=== PATIENT | female | born 1950 | race Caucasian/White ===

== ENCOUNTER 2016-08-17 22:56 | Emergency (ER) | payer BC, OTHER ==
[~2016-08-17] VITALS: Ht 162.6 cm; Wt 50.0 kg
[~2016-08-17 22:56] MED LIST: CALC1250 PO; CENTTAB9 PO; LEVO75TA3 PO; SULF1TAB47 PO; ZOCO40TA PO
[2016-08-17 23:18] VITALS: BP 160/79; PULSE 92; RESP 16; TEMP 98.4; O2SAT 98
[2016-08-17] MEDS ORDERED: SODIUM CHLORIDE 0.9% FLUSH 5 ML FLUSH IVF PRN (23:30)
[2016-08-17 23:33] LABS: MEAN CORPUSCULAR HGB CONC 36.1 % (32.0-36.0)
[2016-08-18] MEDS ORDERED: ACETAMINOPHEN 325 MG TAB PO ONE
[2016-08-18 00:05] VITALS: RESP 18; O2SAT 96
--- NOTE | 2016-08-18 00:13 | RADRPT ---
EXAM DATE/TIME: 08/17/2016 23:35 [facility] COMPARISON: No previous studies available for comparison. INDICATIONS : Chest pain. MEDICAL HISTORY : None. SURGICAL HISTORY : None. ENCOUNTER: Initial ACUITY: 1 day PAIN SCORE: 4/10 LOCATION: Bilateral chest FINDINGS: A single view of the chest demonstrates the lungs to be symmetrically aerated without evidence of mas s, infiltrate or effusion. The cardiomediastinal contours are unremarkable. Osseous structures are intact. CONCLUSION: No acute disease. Kam Reddy MD on August 18, 2016 at 0:07 Board Certified Radiologist. This report was verified electronically.
[2016-08-18 00:20] LABS: BASOPHIL % 0.4 % (0.0-2.0); EOSINOPHIL # 0.2 TH/MM3 (0-0.4); EOSINOPHIL % 2.3 % (0.0-4.0); HEMATOCRIT 35.2 % (35.0-46.0); LYMPH % 41.7 % (9.0-44.0); LYMPHOCYTE # 4.1 TH/MM3 (1.0-4.8); MEAN CELL VOLUME 94.1 FL (80.0-100.0); MEAN CORPUSCULAR HEMOGLOBIN 33.9 PG (27.0-34.0); MONO % 5.4 % (0.0-8.0); NEUT % 50.2 % (16.0-70.0); PLATELET COUNT 298 TH/MM3 (150-450); RED BLOOD COUNT 3.74 MIL/MM3 (4.00-5.30); RED CELL DISTRIBUTION WIDTH 12.8 % (11.6-17.2); WHITE BLOOD COUNT 9.9 TH/MM3 (4.0-11.0)
[2016-08-18 00:23] LABS: HEMO FLAGS AUTO DIFF
[2016-08-18 00:29] LABS: BLOOD, URINE SMALL (NEG); COMMENT (UR) CULT NOT INDICATED; CULTURE IF INDICATED CULT NOT INDICATED; GLUCOSE,URINE NEG (NEG); KETONE, URINE NEG (NEG); MUCUS URINE FEW /lpf (OCC); NITRITE,URINE NEG (NEG); URINE COLOR LIGHT-YELLOW (YELLW/STRAW)
[2016-08-18 00:41] LABS: APTT (PATIENT) 25.5 SEC (24.3-30.1)
[2016-08-18 00:43] LABS: ALT (GPT) 18 U/L (10-53); ANION GAP 9 MEQ/L (5-15); AST (GOT) 17 U/L (15-37); BICARBONATE 28.4 MEQ/L (21.0-32.0); BLOOD UREA NITROGEN 10 MG/DL (7-18); CHLORIDE 107 MEQ/L (98-107); GLOMERULAR FILTRATION RATE 83 ML/MIN (>89); POTASSIUM 3.2 MEQ/L (3.5-5.1); SODIUM (NA) 144 MEQ/L (136-145)
[2016-08-18 00:47] LABS: ALKALINE PHOSPHATASE 59 U/L (45-117); TOTAL BILIRUBIN ADULT 0.3 MG/DL (0.2-1.0)
[2016-08-18 00:55] LABS: CREATINE KINASE 79 U/L (26-192)
[2016-08-18 01:08] LABS: SCAN/DIFF AUTO DIFF CONFIRMED
--- NOTE | 2016-08-18 01:34 | PD ---
HPI Chief Complaint: Syncope/Near-Syncope Time Seen by Provider: 23:22 Travel History International Travel<30 days: No Contact w/Intl Traveler<30days: No Traveled to known affect area: No History of Present Illness HPI Patient is a 65-year-old female who comes in complaining of dizziness and headache. She says that 2 nights ago she started to feel dizzy and felt herself leaning to the left. Yesterday she developed pain to the left side of her neck followed by severe headache. She says the headache is coming and going. The pain is mainly in the back of her head. She is concerned she may be having a stroke. She denies any weakness at this time. She says that she believes the dizziness has resolved. She denies any chest pain or shortness of breath. She has had some nausea, but no vomiting. She denies any fever or chills. 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 Reported Meds & Prescriptions Reported Meds & Active Scripts Active Reported Centrum (Multivitamins) Tab 1 Tab PO DAILY Calcium Carbonate 1,250 Mg/5 Ml Christy 1,250 Mg PO Zocor 40 mg (Simvastatin) 40 Mg Tab 40 Mg PO HS Levothyroxine 75 mcg (Levothyroxine Sodium) 75 Mcg Tab 75 Mcg PO DAILY Review of Systems Except as stated in HPI: all other systems reviewed are Neg General / Constitutional: No: Fever, Chills Eyes: No: Blurred Vision HENT: Positive: Headaches, Lightheadedness Cardiovascular: No: Chest Pain or Discomfort Respiratory: No: Shortness of Breath Gastrointestinal: Positive: Nausea, No: Vomiting Genitourinary: No: Dysuria Musculoskeletal: No: Pain Skin: No Rash, No Change in Pigmentation Neurologic: Positive: Dizziness, No: Syncope Physical Exam Narrative GENERAL: Awake and alert, in no acute distress. SKIN: Warm and dry. HEAD: Atraumatic. Normocephalic. EYES: Pupils equal and round. No scleral icterus. Extraocular movements intact , no nystagmus. ENT: Mucous membranes pink and moist. NECK: Trachea midline. No JVD. CARDIOVASCULAR: Regular rate and rhythm. No murmur appreciated. RESPIRATORY: No accessory muscle use. Clear to auscultation. Breath sounds equal bilaterally. GASTROINTESTINAL: Abdomen soft, non-tender, nondistended. MUSCULOSKELETAL: No obvious deformities. No clubbing. No cyanosis. No edema. NEUROLOGICAL: Awake and alert. No obvious cranial nerve deficits. Motor grossly within normal limits. Normal speech. Normal cerebellar function testing. Able to walk without difficulty. PSYCHIATRIC: Appropriate mood and affect; insight and judgment normal. Data Data Last Documented VS Orders Electrocardiogram (08/17/16 23:30) Complete Blood Count With Diff (08/17/16 23:30) Comprehensive Metabolic Panel (08/17/16 23:30) Ckmb (Isoenzyme) Profile (08/17/16 23:30) Troponin I (08/17/16 23:30) Act Partial Throm Time (Ptt) (08/17/16 23:30) Prothrombin Time / Inr (Pt) (08/17/16 23:30) Urinalysis - C+S If Indicated (08/17/16 23:30) Ua Includes Microscopic (08/17/16 23:30) Chest, Single Ap (08/17/16 23:30) Ct Brain W/O Iv Contrast(Rout) (08/17/16 23:30) Ecg Monitoring (08/17/16 23:30) Iv Access Insert/Monitor (08/17/16 23:30) Oximetry (08/17/16 23:30) Sodium Chloride 0.9% Flush (Ns Flush) (08/17/16 23:30) Cta Brain W Iv Contrast W 3d (08/17/16 ) Cta Neck W Iv Contrast W 3d (08/17/16 ) Acetaminophen (Tylenol) (08/18/16 00:00) Iohexol 350 Inj (Omnipaque 350 Inj) (08/18/16 02:44) Potassium Chloride (Kcl) (08/18/16 03:15) Labs MDM Medical Decision Making Medical Screen Exam Complete: Yes Emergency Medical Condition: Yes Interpretation(s) ECG shows normal sinus rhythm at 87, no ST elevation or depression, normal intervals. Differential Diagnosis Cerebellar stroke versus ICH versus electrolyte abnormality versus ACS Narrative Course Patient is a 65-year-old female who comes in complaining of dizziness and headache. Exam shows no neurologic abnormalities. IV established, patient connected to the cardiac sonographer. Labs sent. Labs show no acute abnormalities. ECG shows no signs of arrhythmia. Patient signed out to Dr. Anton to follow up imaging and disposition appropriately. Condition: Stable Diana Hicks MD Aug 18, 2016 01:34 Urine Glucose (UA) NEG mg/dL Urine Ketones NEG mg/dL Urine Occult Blood SMALL Urine Nitrite NEG Urine Bilirubin NEG Urine Urobilinogen LESS THAN 2.0 MG/DL Urine Leukocyte Esterase NEG Urine RBC 11 /hpf Urine WBC 3 /hpf Urine Mucus FEW /lpf Microscopic Urinalysis Comment CULT NOT INDICATED White Blood Count 9.9 TH/MM3 Red Blood Count 3.74 MIL/MM3 Hemoglobin 12.7 GM/DL Hematocrit 35.2 % Mean Corpuscular Volume 94.1 FL Mean Corpuscular Hemoglobin 33.9 PG Mean Corpuscular Hemoglobin 36.1 % Concent Red Cell Distribution Width 12.8 % Platelet Count 298 TH/MM3 Mean Platelet Volume 7.1 FL Neutrophils (%) (Auto) 50.2 % Lymphocytes (%) (Auto) 41.7 % Monocytes (%) (Auto) 5.4 % Eosinophils (%) (Auto) 2.3 % Basophils (%) (Auto) 0.4 % Neutrophils # (Auto) 5.0 TH/MM3 Lymphocytes # (Auto) 4.1 TH/MM3 Monocytes # (Auto) 0.5 TH/MM3 Eosinophils # (Auto) 0.2 TH/MM3 Basophils # (Auto) 0.0 TH/MM3 CBC Comment AUTO DIFF Differential Comment AUTO DIFF CONFIRMED Prothrombin Time 11.0 SEC Prothromb Time International 1.0 RATIO Ratio Activated Partial 25.5 SEC Thromboplast Time Sodium Level 144 MEQ/L Potassium Level 3.2 MEQ/L Chloride Level 107 MEQ/L Carbon Dioxide Level 28.4 MEQ/L Anion Gap 9 MEQ/L Blood Urea Nitrogen 10 MG/DL Creatinine 0.71 MG/DL Estimat Glomerular Filtration 83 ML/MIN Rate Random Glucose 103 MG/DL Calcium Level 8.6 MG/DL Total Bilirubin 0.3 MG/DL Aspartate Amino Transf 17 U/L (AST/SGOT) Alanine Aminotransferase 18 U/L (ALT/SGPT) Alkaline Phosphatase 59 U/L Total Creatine Kinase 79 U/L Troponin I 0.04 NG/ML Total Protein 6.7 GM/DL Albumin 3.8 GM/DL MDM Medical Decision Making Medical Screen Exam Complete: Yes Emergency Medical Condition: Yes Interpretation(s) ECG shows normal sinus rhythm at 87, no ST elevation or depression, normal intervals. Differential Diagnosis Cerebellar stroke versus ICH versus electrolyte abnormality versus ACS Narrative Course Patient is a 65-year-old female who comes in complaining of dizziness and headache. Exam shows no neurologic abnormalities. IV established, patient connected to the cardiac sonographer. Labs sent. Labs show no acute abnormalities. ECG shows no signs of arrhythmia. Diana Hicks MD Aug 18, 2016 01:34
[2016-08-18] MEDS ORDERED: IOHEXOL 350 MG/ML 10 ML VIAL (for RAD DIAG) IV ONE (02:44)
--- NOTE | 2016-08-18 02:55 | RADRPT ---
EXAM DATE/TIME: 08/18/2016 02:38 [facility] COMPARISON: No previous studies available for comparison. INDICATIONS : Intermittent headaches and neck pain. RADIATION DOSE: 56.77 CTDIvol (mGy) MEDICAL HISTORY : Hypothyroidism. Renal calculi. SURGICAL HISTORY : Tonsillectomy. Appendectomy. ENCOUNTER: Initial ACUITY: 2 days PAIN SCALE: 5/10 LOCATION: cranial TECHNIQUE: Multiple contiguous axial images were obtained of the head. Using automated exposure control and adj ustment of the mA and/or kV according to patient size, radiation dose was kept as low as reasonably a chievable to obtain optimal diagnostic quality images. FINDINGS: CEREBRUM: The ventricles are normal for age. No evidence of midline shift, mass lesion, hemorrhage or acute in farction. No extra-axial fluid collections are seen. POSTERIOR FOSSA: The cerebellum and brainstem are intact. The 4th ventricle is midline. The cerebellopontine angle i s unremarkable. EXTRACRANIAL: The visualized portion of the orbits is intact. SKULL: The calvaria is intact. No evidence of skull fracture. CONCLUSION: Normal examination for a patient of this age. Kam Reddy MD on August 18, 2016 at 2:53 Board Certified Radiologist. This report was verified electronically.
--- NOTE | 2016-08-18 03:09 | PD ---
Data Data Last Documented VS Vital Signs Date Time Temp Pulse Resp B/P Pulse Ox O2 Delivery O2 Flow Rate FiO2 08/18/16 00:05 18 96 Room Air 08/17/16 23:18 98.4 92 160/79 Orders Electrocardiogram (08/17/16 23:30) Complete Blood Count With Diff (08/17/16 23:30) Comprehensive Metabolic Panel (08/17/16 23:30) Ckmb (Isoenzyme) Profile (08/17/16 23:30) Troponin I (08/17/16 23:30) Act Partial Throm Time (Ptt) (08/17/16 23:30) Prothrombin Time / Inr (Pt) (08/17/16 23:30) Urinalysis - C+S If Indicated (08/17/16 23:30) Ua Includes Microscopic (08/17/16 23:30) Chest, Single Ap (08/17/16 23:30) Ct Brain W/O Iv Contrast(Rout) (08/17/16 23:30) Ecg Monitoring (08/17/16 23:30) Iv Access Insert/Monitor (08/17/16 23:30) Oximetry (08/17/16 23:30) Sodium Chloride 0.9% Flush (Ns Flush) (08/17/16 23:30) Cta Brain W Iv Contrast W 3d (08/17/16 ) Cta Neck W Iv Contrast W 3d (08/17/16 ) Acetaminophen (Tylenol) (08/18/16 00:00) Iohexol 350 Inj (Omnipaque 350 Inj) (08/18/16 02:44) Potassium Chloride (Kcl) (08/18/16 03:15) Labs Laboratory Tests Test 08/17/16 08/17/16:19 23:35 Urine Color LIGHT-YELLOW Urine Turbidity CLEAR Urine pH 7.0 Urine Specific [place] 1.006 Urine Protein NEG mg/dL Urine Glucose (UA) NEG mg/dL Urine Ketones NEG mg/dL Urine Occult Blood SMALL Urine Nitrite NEG Urine Bilirubin NEG Urine Urobilinogen LESS THAN 2.0 MG/DL Urine Leukocyte Esterase NEG Urine RBC 11 /hpf Urine WBC 3 /hpf Urine Mucus FEW /lpf Microscopic Urinalysis Comment CULT NOT INDICATED White Blood Count 9.9 TH/MM3 Red Blood Count 3.74 MIL/MM3 Hemoglobin 12.7 GM/DL Hematocrit 35.2 % Mean Corpuscular Volume 94.1 FL Mean Corpuscular Hemoglobin 33.9 PG Mean Corpuscular Hemoglobin 36.1 % Concent Red Cell Distribution Width 12.8 % Platelet Count 298 TH/MM3 Mean Platelet Volume 7.1 FL Neutrophils (%) (Auto) 50.2 % Lymphocytes (%) (Auto) 41.7 % Monocytes (%) (Auto) 5.4 % Eosinophils (%) (Auto) 2.3 % Basophils (%) (Auto) 0.4 % Neutrophils # (Auto) 5.0 TH/MM3 Lymphocytes # (Auto) 4.1 TH/MM3 Monocytes # (Auto) 0.5 TH/MM3 Eosinophils # (Auto) 0.2 TH/MM3 Basophils # (Auto) 0.0 TH/MM3 CBC Comment AUTO DIFF Differential Comment AUTO DIFF CONFIRMED Prothrombin Time 11.0 SEC Prothromb Time International 1.0 RATIO Ratio Activated Partial 25.5 SEC Thromboplast Time Sodium Level 144 MEQ/L Potassium Level 3.2 MEQ/L Chloride Level 107 MEQ/L Carbon Dioxide Level 28.4 MEQ/L Anion Gap 9 MEQ/L Blood Urea Nitrogen 10 MG/DL Creatinine 0.71 MG/DL Estimat Glomerular Filtration 83 ML/MIN Rate Random Glucose 103 MG/DL Calcium Level 8.6 MG/DL Total Bilirubin 0.3 MG/DL Aspartate Amino Transf 17 U/L (AST/SGOT) Alanine Aminotransferase 18 U/L (ALT/SGPT) Alkaline Phosphatase 59 U/L Total Creatine Kinase 79 U/L Troponin I 0.04 NG/ML Total Protein 6.7 GM/DL Albumin 3.8 GM/DL [facility] Supervised Visit with DAVID: No Narrative Course Patient signed out to me by previous provider. Please see associated no for further details. Intra-patient is a 65-year-old female here with headache and dizziness for the last 2 days, also left-sided neck pain. Headache is intermittent, occipital. Neurologic examination unremarkable. Previous provider had concern for possible vertebral dissection given patient's neck pain with headache. Signed out to me pending CT/CTA of the brain and neck. Twelve-lead EKG and laboratory workup were reviewed and notable for potassium 3.2. Patient was replaced with potassium orally. CT of the brain and CTA of the brain and neck showed mild eccentric plaque proximal left internal carotid artery but no significant stenosis. Vertebrals patent without aneurysm. Patient felt improved and is been able to ambulate without any difficulty. Headache is resolved at this time. Patient does not warrant any further admission or workup and was encouraged to follow up as an outpatient with her primary for her left carotid disease. Diagnosis Primary Impression: Dizziness Additional Impressions: Headache Qualified Code: R51 - Acute nonintractable headache, unspecified headache type Left-sided carotid artery disease Referrals: Primary Care Physician 3 days Additional Instruction: Follow-up with primary care provider as discussed. Return to the emergency department for the warning signs discussed. Med/Other Pt SpecificInfo: No Change to Meds Disposition: 01 DISCHARGE HOME Condition: Stable Philomena Lobo MD Aug 18, 2016 03:09
[2016-08-18] MEDS ORDERED: POTASSIUM CHLORIDE 20 MEQ CONTROLLED RELEASE TAB PO ONE (03:15)
--- NOTE | 2016-08-18 03:39 | RADRPT ---
EXAM DATE/TIME: 08/18/2016 02:38 [facility] COMPARISON: No previous studies available for comparison. INDICATIONS : Intermittent headaches and neck pain. IV CONTRAST: 84 cc Omnipaque 350 (iohexol) IV ; Cumulative dose for multiple exams. RADIATION DOSE: 12.96 CTDIvol (mGy) ; Combined studies MEDICAL HISTORY : Hypothyroidism. Renal calculi. SURGICAL HISTORY : Appendectomy. Tonsillectomy. ENCOUNTER: Initial ACUITY: 2 days PAIN SCALE: 5/10 LOCATION: cranial TECHNIQUE: Volumetric scanning was performed using a multi-row detector CT scanner. The data was post processed with a variety of visualization algorithms including full volume maximum intensity projection, multi -planar sliding thin slab reformation, curved planar reformation, and surface rendering techniques. Using automated exposure control and adjustment of the mA and/or kV according to patient size, radiat ion dose was kept as low as reasonably achievable to obtain optimal diagnostic quality images. FINDINGS: There is excellent visualization of the major intracranial arteries out to the second-order branch ve ssels. There is no evidence for aneurysm, vessel truncation or stenosis, and no evidence for vascula r malformation. CONCLUSION: Normal examination for a patient of this age. Kam Reddy MD on August 18, 2016 at 3:33 Board Certified Radiologist. This report was verified electronically.
--- NOTE | 2016-08-18 03:42 | RADRPT ---
EXAM DATE/TIME: 08/18/2016 02:38 [facility] COMPARISON: No previous studies available for comparison. INDICATIONS : Intermittent headaches and neck pain. IV CONTRAST: 84 cc Omnipaque 350 (iohexol) IV ; Cumulative dose for multiple exams. RADIATION DOSE: 12.96 CTDIvol (mGy) ; Combined studies MEDICAL HISTORY : Hypothyroidism. Renal calculi. SURGICAL HISTORY : Appendectomy. Tonsillectomy. ENCOUNTER: Initial ACUITY: 2 days PAIN SCALE: 5/10 LOCATION: neck Elevated flow velocities and ICA/CCA ratios have been found to correlate with increased degrees of vessel stenosis, calculated as percentage of diameter relative to a normal segment of distal ICA/CCA. TECHNIQUE: Volumetric scanning was performed using a multirow detector CT scanner. The data was post processed with a variety of visualization algorithms including full-volume maximum intensity projection, multip lanar sliding thin-slab reformation, curved-planar reformation, and surface-rendering techniques. Us ing automated exposure control and adjustment of the mA and/or kV according to patient size, radiatio n dose was kept as low as reasonably achievable to obtain optimal diagnostic quality images. FINDINGS: Great vessel origins are patent. Both common carotid arteries are patent. There is minimal atheroscle rotic plaque proximal right internal carotid without stenosis. There is a minimal plaque proximal left internal carotid artery with minimal stenosis, not hemodynami han significant. Both vertebral arteries are patent within the neck. CONCLUSION: Mild eccentric plaque proximal left internal carotid artery. No hemodynamically significant stenosis in the carotid arteries bilaterally. Vertebral arteries are patent in the neck. No discrete aneurysm. Kam Reddy MD on August 18, 2016 at 3:38 Board Certified Radiologist. This report was verified electronically.
--- NOTE | 2016-08-18 12:32 | EKG ---
Date Performed: 08/18/2016 Time Performed: 00:05:44 PTAGE: 65 years EKG: Sinus rhythm NORMAL ECG No significant change from prior electrocardiogram. PREVIOUS TRACING : 02/02/2013 19.33 DOCTOR: Vernon Munoz Interpretating Date/Time 08/18/2016 12:31:33
== END 2016-08-18 05:21 | disposition home or self-care (01) ==
LOC: NEPA 22:56
DX: R42 Dizziness and giddiness (principal); R51 Headache; M54.2 Cervicalgia; R11.0 Nausea; E78.00 Pure hypercholesterolemia, unspecified; M81.0 Age-related osteoporosis without current pathological fracture; E03.9 Hypothyroidism, unspecified; F17.210 Nicotine dependence, cigarettes, uncomplicated; Z87.442 Personal history of urinary calculi; R07.9 Chest pain, unspecified
CPT/HCPCS: 70450; 70496; 70498; 71010; 80053; 81001; 82550; 84484; 85025; 85610; 85730; 93005; 99285; Q9967